=== PATIENT | male | born 1985 | race Caucasian/White ===

== ENCOUNTER 2017-04-30 09:35 | Emergency (ER) | payer MEDICAID ==
[2017-04-30] MEDS: DIPHTH/TET/ACEL PERTUSS (ADULT) 0.5 ML VIAL IM* (12:24)
[2017-04-30] MEDS: HYDROCODONE/APAP (5/325) TAB PO (12:24)
[2017-04-30] MEDS: LIDOCAINE 1% (MDV) 20 ML INJ SC (13:17)
[2017-04-30] MEDS: CEFAZOLIN 1 GM INJ IM (15:30)
== END 2017-04-30 15:41 | disposition home or self-care (01) ==
LOC: FTE 09:35
DX: S61.317A Laceration without foreign body of left little finger with damage to nail, initial encounter (principal); W27.0XXA Contact with workbench tool, initial encounter; Y92.9 Unspecified place or not applicable; Z23 Encounter for immunization
CPT/HCPCS: 12002; 73130-LT; 90471; 90715; 96372; 99284-25